=== PATIENT | female | born 1950 | race Caucasian/White ===

== ENCOUNTER 2024-05-08 09:14 | Outpatient (CLI) | payer BC ==
[2024-05-08] VITALS (8 sets, daily range): BP systolic 141–175; BP diastolic 69–72; PULSE 72–87; RESP 14–16; O2SAT 96–100
[~2024-05-08] VITALS: Ht 165.1 cm; Wt 84.8 kg
[2024-05-08] MEDS ORDERED: normal saline 500ml IV soln 500 ML IV ONE (10:15)
[2024-05-08] MEDS ORDERED: metoprolol tartrate 1mg/ml inj IV PRN (10:15)
[2024-05-08] MEDS ORDERED: aminophylline 250mg/10ml inj. IV PRN (10:15)
[2024-05-08] MEDS: regadenoson 0.4mg/5ml syringe IV ONE (11:14)
== END 2024-05-08 23:59 | disposition home or self-care (01) ==
LOC: NM 09:14
PROVIDERS: ATTEND Internal Medicine Cardiovascular Disease
DX: Z01.810 Encounter for preprocedural cardiovascular examination (principal)
CPT/HCPCS: 78452; 93017; A9500; J2785; J7040